=== PATIENT | male | born 1990 | race Caucasian/White ===

== ENCOUNTER 2020-04-03 18:24 | Emergency (ER) | payer SELFPAY ==
[~2020-04-03] VITALS: Ht 172.7 cm; Wt 74.4 kg
[2020-04-03 18:34] VITALS: BP 134/91
[2020-04-03] MEDS ORDERED: triamcinolone acetonide 40mg/ml inj IM ONE (19:55)
[2020-04-03] MEDS ORDERED: PRED10TA23 PO (19:58)
[2020-04-03] MEDS ORDERED: HYDR28CR14 TOP (19:58)
== END 2020-04-03 20:24 | disposition home or self-care (01) ==
LOC: ER 18:26
DX: L23.7 Allergic contact dermatitis due to plants, except food (principal); Z79.899 Other long term (current) drug therapy
CPT/HCPCS: 96372; 99283; J3301